=== PATIENT | female | born 1990 | race Caucasian/White ===

== ENCOUNTER → 2020-10-16 14:02 | Outpatient (ROUT) | payer BC, SELFPAY ==
[2020-10-16 14:44] LABS: Influenza A - CEPHEID Flu A NEGATIVE (NEGATIVE); Influenza B - CEPHEID Flu B NEGATIVE (NEGATIVE)
== END ==
PROVIDERS: PCP Physician Assistant; Visit Provider Internal Medicine
DX: B34.9 Viral infection, unspecified (principal)
CPT/HCPCS: 87502

== ENCOUNTER → 2022-10-28 08:35 | Outpatient (CLI) | payer BC, SELFPAY ==
--- NOTE | 2022-10-28 | DI.MG.S_ITS ---
BILATERAL DIGITAL DIAGNOSTIC MAMMOGRAM 3D/2D: 10/28/2022 CLINICAL: Baseline exam. Left breast lump. No prior exams were available for comparison. Both breasts are extremely dense, which lowers the sensitivity of mammography (category d />75% glandular tissue). No significant masses, calcifications, or other findings are seen in either breast. IMPRESSION: INCOMPLETE: NEEDS ADDITIONAL IMAGING EVALUATION No mammographic evidence of malignancy. A targeted ultrasound is recommended and will immediately follow. Based on Tyrer-Cuzick model (a risk assessment model), the patient's lifetime risk is 33.7% and her 10 year risk is 2.0%. If a patient has an elevated risk, a more comprehensive evaluation should be considered and/or a referral to a genetic counselor. The [place] [employer], [employer], and NCCN Guidelines advise the consideration of Breast MRI as an adjunct to screening mammography in patients whose Lifetime risk to develop breast cancer is 20% or higher. This exam was interpreted at Station ID: [id number]. NOTE: For mammograms, a report in lay terms will be sent to the patient. Approximately 15% of breast malignancies will not be visualized mammographically. In the management of a palpable breast mass, a negative mammogram must not discourage biopsy of a clinically suspicious lesion. Electronically Signed By: Alexey Jimenez M.D. [facility] [place]/:10/28/2022 09:17:50 ACR BI-RADS Category 0: Incomplete [id number]
--- NOTE | 2022-10-28 | DI.US.S_ITS ---
LIMITED ULTRASOUND OF LEFT BREAST: 10/28/2022 CLINICAL: Palpable left breast lump X 3 months. Comparison is made to exam dated: 10/28/2022 mammogram - [facility]. Color flow and real-time ultrasound of the left breast were performed. [place] scale images of the real-time examination were reviewed. There is a benign 0.8 cm x 0.6 cm x 0.4 cm oval cyst in the left breast at 2 o'clock middle depth 3 cm from the nipple. This oval cyst is anechoic with internal echoes and posterior acoustic enhancement. This correlates as palpated. Color flow imaging demonstrates that there is no vascularity present. IMPRESSION: BENIGN There is no sonographic evidence of malignancy. The 0.8 cm cyst in the left breast is benign. Exam findings were conveyed to the patient. Patient is advised to monitor for significant change. Clinical follow-up as needed. Return to annual mammogram screening schedule is recommended. This exam was interpreted at Station ID: [id number]. Electronically Signed By: Alexey Jimenez M.D. [facility]/:10/28/2022 09:42:40 letter sent: Normal Exam Ultrasound BI-RADS: 2 Benign
== END ==
PROVIDERS: PCP Physician Assistant; Referring Provider Internal Medicine; Visit Provider Internal Medicine
DX: N60.02 Solitary cyst of left breast (principal); Z80.3 Family history of malignant neoplasm of breast; R92.2 Inconclusive mammogram
CPT/HCPCS: 76642; 77066; G0279

== ENCOUNTER → 2024-12-11 12:24 | Outpatient (CLI) | payer BC, SELFPAY ==
[2024-12-11 14:19] LABS: Urine N gonorrhoeae NOT DETECTED
[2024-12-11 14:31] LABS: Urine Chlamydia NOT DETECTED
== END ==
PROVIDERS: PCP Physician Assistant; Visit Provider Registered Nurse
DX: N94.9 Unspecified condition associated with female genital organs and menstrual cycle (principal); R30.0 Dysuria
CPT/HCPCS: 87077; 87086; 87186; 87210; 87491; 87591

== ENCOUNTER → 2025-02-16 15:37 | Outpatient (CLI) | payer BC, SELFPAY ==
--- NOTE | 2025-02-16 15:38 | DI.MG.S_ITS ---
MM screening mammo BI: 02/16/2025. BI-RADS: 1 CLINICAL: 35-year old female for bilateral screening mammogram. Tyrer-Cuzick lifetime risk of 31.8%. Current reported family history of breast cancer: mother and maternal aunt. PRIOR EXAMS 10/28/2022. MAMMOGRAPHY TECHNIQUE: 2D and 3D (tomosynthesis) digital mammographic views obtained, with additional images as needed for full coverage. Current study was also evaluated with a Computer Aided Detection (CAD) system. DENSITY D. The breasts are extremely dense, which lowers the sensitivity of mammography. MAMMOGRAPHY FINDINGS Bilateral: No suspicious mass, asymmetry, microcalcification, or other abnormality seen. IMPRESSION: * No evidence of malignancy. RECOMMENDATIONS Bilateral * According to the Tyrer-Cuzick Risk Assessment Model, based on the information provided your patient has a greater than 20% lifetime risk for developing breast cancer. Consider supplemental screening with breast MRI and participation in a high risk screening program. * Annual screening mammography. OVERALL ASSESSMENT CATEGORY BI-RADS-1: Negative. The [employer] [place] [employer] recommends annual screening mammography beginning at age 40 for women with average risk of breast cancer. ELECTRONICALLY SIGNED: Isabel Delgadillo M.D. on 02/20/2025 at 01:39:14 PM PT Interpreting Station ID: [id number]
== END ==
LOC: MAMMO 15:38
PROVIDERS: PCP Family Medicine; Referring Provider Family Medicine; Visit Provider Family Medicine
DX: Z12.31 Encounter for screening mammogram for malignant neoplasm of breast (principal); Z80.3 Family history of malignant neoplasm of breast; R92.343 Mammographic extreme density, bilateral breasts
CPT/HCPCS: 77063; 77067